=== PATIENT | male | born 1960 | race Caucasian/White ===

== ENCOUNTER 2018-01-17 16:22 | Observation (INO) ==
[2018-01-17] MEDS ORDERED: ASPIRIN 325 MG TABLET PO STA (16:35)
[2018-01-17] MEDS ORDERED: ASPIRIN 325 MG TABLET ONE (16:45)
[2018-01-17] MEDS ORDERED: ENOXAPARIN 100 MG/ML SYRINGE SUBCUT STA (16:50)
[2018-01-17] MEDS ORDERED: ENOXAPARIN 100 MG/ML SYRINGE SUBCUT ONE (16:54)
[2018-01-17] MEDS ORDERED: NITROGLYCERIN SL 0.4 MG TABLET SL ONE ×2 (16:55→17:12)
[2018-01-17] MEDS: NITROGLYCERIN SL 0.4 MG TABLET SL PRN ×2 (16:58→17:13)
[2018-01-17 17:04] LABS: Basophils % 0.5 % (0.0-0.8); Eosinophils # 0.4 10*3/uL (0.0-0.87); Eosinophils % 4.7 % (0.00-10.9); Hematocrit 40.8 VOL% (42.0-52.0); Immature Granulocytes % 0.5 %; Immature Granulocytes Absolute 0.04 #; Lymphocytes # 1.7 10*3/uL (1.4-4.0); Mean Corpuscular HGB Conc 34.3 GM/DL (32-36); Mean Corpuscular Hemoglobin 33 PG (27-34); Mean Corpuscular Volume 94.9 FL (87-102); Monocytes # 0.7 10*3/uL (0.11-0.8); Monocytes % 8.1 % (1.7-12.7); Neutrophils # 5.4 10*3/uL (1.4-7.4); Neutrophils % 65.2 % (38.7-73.9); Platelet Count 206 T/CUMM (130-400); Red Cell Distribution Width 12.5 % (9.3-17.3); White Blood Count 8.2 T/CUMM (4-12)
[2018-01-17] MEDS ORDERED: ACETAMINOPHEN 500 MG TABLET PO STA (17:07)
[2018-01-17 17:09] LABS: Troponin I Only < 0.015 NG/ML (0.00-0.045)
[2018-01-17] MEDS ORDERED: ACETAMINOPHEN 500 MG TABLET ONE (17:09)
[2018-01-17 17:12] LABS: Alanine Aminotransferase 35 U/L (16-61); Albumin 4.2 G/DL (3.4-5.0); Alkaline Phosphatase 32 U/L (45-117); Aspartate Amino Transferase 19 U/L (0-37); Bilirubin,Total < 0.39 MG/DL (0.2-1.0); Blood Urea Nitrogen 11 MG/DL (7-18); Calcium 9.6 MG/DL (8.5-10.1); Glucose 123 MG/DL (74-106); Osmolality,Calculated 274.7 MOS/KG (273-304); Potassium 4.1 MMOL/L (3.5-5.1); Sodium 138 MMOL/L (136-145); Total Protein 7.6 G/DL (6.4-8.3)
[2018-01-17] MEDS ORDERED: POTASSIUM CHLORIDE 20 MEQ TABLET PO PRN (18:20)
[2018-01-17] MEDS ORDERED: MAGNESIUM SULF RIDER 4 GM in PREMIX 1 EACH IV PRN ×2 (18:20→19:39)
[2018-01-17] MEDS ORDERED: ONDANSETRON 4 MG/2 ML VIAL IV PRN (18:20)
[2018-01-17] MEDS ORDERED: POTASSIUM CHLORIDE RIDER 10 MEQ in PREMIX 1 EACH IV PRN (18:20)
[2018-01-17] MEDS ORDERED: MAGNESIUM SULF RIDER 2 GM in PREMIX 1 EACH IV PRN ×2 (18:20→19:39)
[2018-01-17] MEDS ORDERED: DOCUSATE SODIUM 100 MG CAPSULE PO PRN (18:20)
[2018-01-17] MEDS ORDERED: ACETAMINOPHEN 325 MG TABLET PO PRN (18:20)
[2018-01-17] MEDS ORDERED: NICOTINE 21 MG/24 HR PATCH TRANSDERM PRN (18:20)
[2018-01-17] MEDS ORDERED: ATORVASTATIN 20 MG TABLET PO SCH (21:00)
[2018-01-17] MEDS: IBUPROFEN 800 MG TABLET PO SCH (21:11)
[2018-01-17] MEDS: busPIRone 10 MG TABLET PO SCH (21:12)
[2018-01-18 04:57] LABS: Basophils # 0.1 10*3/uL (0.0-0.2); Basophils % 0.9 % (0.0-0.8); Eosinophils # 0.3 10*3/uL (0.0-0.87); Hematocrit 40.3 VOL% (42.0-52.0); Hemoglobin 13.7 GM/DL (14.0-18.0); Immature Granulocytes % 0.6 %; Immature Granulocytes Absolute 0.04 #; Lymphocytes # 1.9 10*3/uL (1.4-4.0); Mean Corpuscular Hemoglobin 33 PG (27-34); Mean Corpuscular Volume 95.5 FL (87-102); Mean Platelet Volume 10.9 FL (9.6-12.0); Monocytes # 0.6 10*3/uL (0.11-0.8); Monocytes % 8.3 % (1.7-12.7); Neutrophils # 3.8 10*3/uL (1.4-7.4); Neutrophils % 57.2 % (38.7-73.9); Platelet Count 197 T/CUMM (130-400); Red Blood Count 4.22 MC/CUMM (3.8-5.5); Red Cell Distribution Width 12.6 % (9.3-17.3); White Blood Count 6.6 T/CUMM (4-12)
[2018-01-18] MEDS ORDERED: ENOXAPARIN 100 MG/ML SYRINGE SUBCUT SCH ×2 (05:00→09:30)
[2018-01-18 05:46] LABS: Calcium 8.8 MG/DL (8.5-10.1); Osmolality,Calculated 281.3 MOS/KG (273-304); Potassium 4.1 MMOL/L (3.5-5.1); Risk Ratio 5.64; VLDL CHOLESTEROL 41.6 MG/DL
[2018-01-18 06:56] LABS: Barbiturates Screen,Urine Negative (Negative); Benzodiazepines Screen,Urine Negative (Negative); Cannabinoid Screen,Urine Negative (Negative); Opiate Screen,Urine Negative (Negative); Phencyclidine Screen,Urine Negative (Negative)
[2018-01-18] MEDS ORDERED: ATORVASTATIN 40 MG TABLET PO SCH (08:17)
[2018-01-18] MEDS ORDERED: ASPIRIN EC 81 MG TABLET PO SCH (09:00)
[2018-01-18] MEDS ORDERED: PANTOPRAZOLE 40 MG TABLET PO SCH ×2 (09:00)
[2018-01-18] MEDS ORDERED: DULoxetine 30 MG CAPSULE PO SCH (09:00)
[2018-01-18] MEDS ORDERED: amLODIPine 5 MG TABLET PO SCH (09:00)
[2018-01-18] MEDS ORDERED: CARVEDILOL 6.25 MG TABLET PO SCH (09:00)
[2018-01-18] MEDS ORDERED: ARIPiprazole 5 MG TABLET PO SCH (09:00)
[2018-01-18] MEDS ORDERED: ISOSORBIDE MONONITRATE 30 MG TABLET PO SCH (09:30)
[2018-01-18] MEDS: IBUPROFEN 800 MG TABLET PO SCH (10:11)
[2018-01-18] MEDS: busPIRone 10 MG TABLET PO SCH ×2 (10:13→17:26)
[2018-01-18] MEDS ORDERED: KETOROLAC 10 MG TABLET PO SCH (12:00)
[2018-01-18 16:43] VITALS: BP 124/80
[2018-01-19] MEDS ORDERED: LISINOPRIL 5 MG TABLET PO SCH (09:00)
== END 2018-01-18 17:55 ==
LOC: N.ED 16:22 → N.EDINP 16:22 → N.TELES 19:20
PROVIDERS: ADMIT Internal Medicine Interventional Cardiology; ATTEND Internal Medicine Interventional Cardiology